=== PATIENT | male | born 2000 | race Caucasian/White ===

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

== ENCOUNTER 2021-11-23 13:43 | Emergency (ER) | payer OTHER ==
[~2021-11-23] VITALS: Ht 190.5 cm; Wt 81.7 kg
== END 2021-11-23 16:22 | disposition home or self-care (01) ==
LOC: ER 13:43
DX: B34.9 Viral infection, unspecified (principal); Z20.822 Contact with and (suspected) exposure to COVID-19
CPT/HCPCS: 99283